=== PATIENT | male | born 1950 | race Caucasian/White ===

== ENCOUNTER 2018-12-01 07:47 | Day surgery (SDC) | payer OTHER, BC ==
[2018-11-30 14:01] VITALS: BMI 24.3
[2018-12-01 09:20] VITALS: TEMP 98.2
[2018-12-01 09:29] VITALS: PULSE 68
[2018-12-01 10:13] VITALS: BP 123/52
== END 2018-12-01 10:05 | disposition home or self-care (01) ==
LOC: JASU-ENDO 07:47
PROVIDERS: ATTEND Internal Medicine Gastroenterology
PROC: 0DJD8ZZ Inspection of Lower Intestinal Tract, Via Natural or Artificial Opening Endoscopic (ICD-10-PCS; principal; 2018-12-01 08:00)
DX: Z12.11 Encounter for screening for malignant neoplasm of colon (principal); R19.7 Diarrhea, unspecified; I10 Essential (primary) hypertension; E11.9 Type 2 diabetes mellitus without complications; Z79.4 Long term (current) use of insulin

== ENCOUNTER 2022-09-19 10:38 | Emergency (ER) | payer OTHER, BC ==
[2022-09-19 10:46] VITALS: BP 148/87; PULSE 143; RESP 18; TEMP 98.1; BMI 24.8
[2022-09-19 11:56] LABS: HEMATOCRIT 45.9 % (35.4-49); HEMOGLOBIN 15.5 GM/dL (11.7-16.9); MCH 31.6 pg (25.7-33.7); MCHC 33.7 g/dl (32.0-35.9); MEAN CELL VOLUME 93.6 fl (80-96); MEAN PLT VOLUME 7.1 fl (7.5-11.1); PLATELET COUNT 280 10^3/uL (134-434); RDW 13.1 % (11.9-15.9); WHITE BLOOD COUNT 8.2 K/mm3 (4.0-10.0)
[2022-09-19 12:15] LABS: CALCIUM 9.5 mg/dL (8.5-10.1)
[2022-09-19 12:16] LABS: BLOOD UREA NITROGEN 15.3 mg/dL (7-18)
[2022-09-19 12:19] LABS: CREATININE 0.9 mg/dL (0.55-1.3)
[2022-09-19 12:20] LABS: BILIRUBIN,TOTAL 0.5 mg/dL (0.2-1); TOT PROT 7.6 g/dl (6.4-8.2)
== END 2022-09-19 14:26 | disposition left against medical advice (07) ==
LOC: JERFT 10:38 → JER 10:38
DX: M25.561 Pain in right knee (principal); G89.29 Other chronic pain; I48.91 Unspecified atrial fibrillation; W01.0XXA Fall on same level from slipping, tripping and stumbling without subsequent striking against object, initial encounter; Y92.002 Bathroom of unspecified non-institutional (private) residence as the place of occurrence of the external cause
CPT/HCPCS: 36415; 71045-TC-FY; 73562-TC-RT-FY; 80053; 85027; 86850; 86900; 86901; 93005; 93010; 99285-25